=== PATIENT | male | born 1995 | race Caucasian/White ===

== ENCOUNTER 2017-08-11 12:52 | Emergency (ER) | payer BC ==
[2017-08-11 14:21] VITALS: BP 122/80
--- NOTE | 2017-08-11 14:58 | UC ---
UC General HPI - HPI Summary HPI Summary: Pt c/o generalized body aches, tender lymph nodes under chin. 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 Pt states he felt better but over the last 2 days wakes with joint pain and tender lymph nodes under chin. Pt is concerned about lyme disease. PCP is Mary James. - History of Current Complaint Chief Complaint: UCGeneralIllness Stated Complaint: ACHY FATIGUE Time Seen by Provider: 08/11/17 14:25 Hx Obtained From: Patient Onset/Duration: Sudden Onset, Lasting Days, Still Present Timing: Constant Onset Severity: Mild Current Severity: Mild Pain Intensity: 5 - Allergy/Home Medications Allergies/Adverse Reactions: Allergies Allergy/AdvReac Type Severity Reaction Status Date / Time bee stings Allergy Anaphylatic Uncoded 08/11/17 14:18 Shock Home Medications: Home Medications NK [No Home Medications Reported] 08/11/17 [History Confirmed 08/11/17] PMH/Surg Hx/FS Hx/Imm Hx Previously Healthy: Yes - Surgical History Surgical History: Yes Surgery Procedure, Year, and Place: app2010 - Family History Known Family History: Positive: Cardiac Disease - Social History Occupation: Employed Full-time Lives: With Family Alcohol Use: Weekly Substance Use Type: None Smoking Status (MU): Never Smoked Tobacco Have You Smoked in the Last Year: No - Immunization History Vaccination Up to Date: Yes Review of Systems Constitutional: Fatigue Skin: Negative Eyes: Negative ENT: Negative Respiratory: Negative Cardiovascular: Negative Gastrointestinal: Negative Genitourinary: Negative Motor: Other - joint pain Neurovascular: Negative Musculoskeletal: Arthralgia, Myalgia Neurological: Negative Psychological: Negative Is Patient Immunocompromised?: No All Other Systems Reviewed And Are Negative: Yes Physical Exam Triage Information Reviewed: Yes Appearance: Well-Appearing Vital Signs: Initial Vital Signs Temp 98.8 F 08/11/17 14:15 Pulse 78 08/11/17 14:15 Resp 16 08/11/17 14:15 BP 122/80 08/11/17 14:15 Pulse Ox 100 08/11/17 14:15 Vital Signs Reviewed: Yes Eye Exam: Normal ENT Exam: Normal Dental Exam: Normal Neck exam: Normal Respiratory Exam: Normal Cardiovascular Exam: Normal Musculoskeletal Exam: Normal Neurological Exam: Normal Psychological Exam: Normal Skin Exam: Other - facial acne Course/Dx - Course Course Of Treatment: I discussed with the pt the need to follow up with his PCP as soon as possible. Pt verbalized understanding and agreed to plan of care. - Differential Dx - Multi-Symptom Provider Diagnoses: Arthralgia. joint pain Discharge - Discharge Plan Condition: Stable Disposition: HOME Patient Education Materials: Arthralgia (ED) Referrals: Kassie James MD [Primary Care Provider] - As Soon As Possible Additional Instructions: Please follow up with your PCP as soon as possible.
[2017-08-11 19:53] LABS: ABS Basophils 0.1 10^3/ul (0-0.2); ABS Eosinophils 0.3 10^3/ul (0-0.6); ABS Lymphocytes 1.3 10^3/ul (1.0-4.8); ABS Monocytes 0.7 10^3/ul (0-0.8); ABS Neutrophils 6.6 10^3/ul (1.5-7.7); ABS Nucleated RBC 0 10^3/ul; Eosinophil % 3.5 % (0-6); Hematocrit 43 % (42-52); Lymphocyte % 14.6 % (25-47); Mean Corpuscular HGB Conc 35 g/dl (31-36); Mean Corpuscular Hemoglobin 30 pg (27-31); Mean Corpuscular Volume 87 fL (80-94); Mean Platelet Volume 8 um3 (7.4-10.4); Nucleated Red Blood Cells % 0.1; Platelet Count 232 10^3/ul (150-450); Red Blood Count 4.95 10^6/ul (4.0-5.4); Red Cell Distribution Width 13 % (10.5-15); White Blood Count 8.9 10^3/ul (3.5-10.8)
== END 2017-08-11 15:15 | disposition home or self-care (01) ==
LOC: UCCORT 12:52
DX: M25.50 Pain in unspecified joint (principal); Z91.030 Bee allergy status
CPT/HCPCS: 36415; 85025; 87798; 99211; G0463

== ENCOUNTER 2017-10-17 11:09 | Emergency (ER) | payer BC ==
[2017-10-17 13:28] VITALS: BP 140/71
[2017-10-17] MEDS ORDERED: Albuterol 2.5 MG/3 ML NEB.SOL* (0.083%) INH ONE (13:58)
--- NOTE | 2017-10-17 13:59 | UC ---
UC General HPI - HPI Summary HPI Summary: PT IS C/O A 1 WEEK HX COUGH, SOB, WHEEZING. SUBJECTIVE FEVER. USING AN ALBUTEROL INHALER WITH SOME RELIEF. HX PNEUMONIA ONCE YEARS AGO AND THIS FEELS THE SAME. + GREEN SPUTUM. - History of Current Complaint Chief Complaint: UCRespiratory Stated Complaint: COUGH*1WEEK Time Seen by Provider: 10/17/17 13:44 Hx Obtained From: Patient Onset/Duration: Gradual Onset Timing: Constant Pain Intensity: 5 Associated Signs & Symptoms: Positive: Cough, Fever, SOB, Wheezing. Negative: Chest Pain - Allergy/Home Medications Allergies/Adverse Reactions: Allergies Allergy/AdvReac Type Severity Reaction Status Date / Time bee stings Allergy Anaphylatic Uncoded 10/17/17 13:22 Shock PMH/Surg Hx/FS Hx/Imm Hx Respiratory History: Pneumonia - ONCE YEARS AGO - Surgical History Surgical History: Yes Surgery Procedure, Year, and Place: app2010 - Family History Known Family History: Positive: Cardiac Disease - Social History Occupation: Employed Full-time Lives: With Family Alcohol Use: Weekly Substance Use Type: None Smoking Status (MU): Never Smoked Tobacco Have You Smoked in the Last Year: No - Immunization History Vaccination Up to Date: Yes Review of Systems Constitutional: Fever, Chills Skin: Negative Eyes: Negative ENT: Negative Respiratory: Shortness Of Breath, Cough Cardiovascular: Negative Gastrointestinal: Negative Genitourinary: Negative Motor: Negative Neurovascular: Negative Musculoskeletal: Negative Neurological: Negative Psychological: Negative Is Patient Immunocompromised?: No All Other Systems Reviewed And Are Negative: Yes Physical Exam Triage Information Reviewed: Yes Appearance: Well-Appearing Vital Signs: Initial Vital Signs Temp 97.4 F 10/17/17 13:22 Pulse 74 10/17/17 13:22 Resp 16 10/17/17 13:22 BP 140/71 10/17/17 13:22 Pulse Ox 98 10/17/17 13:22 Vital Signs Reviewed: Yes Eyes: Positive: Conjunctiva Clear ENT: Positive: Pharynx normal, TMs normal. Negative: Nasal congestion, Nasal drainage Neck: Positive: Supple, Nontender, No Lymphadenopathy Respiratory: Positive: No respiratory distress, Decreased breath sounds, Expiration - DIFFUSE Cardiovascular: Positive: RRR, No Murmur, Pulses Normal Abdomen Description: Positive: Nontender, No Organomegaly, Soft Bowel Sounds: Positive: Present Musculoskeletal: Positive: ROM Intact Neurological: Positive: Alert Psychological: Positive: Age Appropriate Behavior Skin Exam: Normal Diagnostics - Radiology No standard instances Xray Interpretation: No Acute Changes Radiology Interpretation Completed By: Radiologist Re-Evaluation - Re-Evaluation Second Eval Re-Evaluation Time: 14:19 Change: Improved - wheezing cleared. faint crackles RLL. Course/Dx - Course Course Of Treatment: NO HX HTN, I THINK BP RELATED TO ILLNESS AND ALBUTEROL USE q4 HOURS. CXR UNREMARKABLE BUT CRACKLES RLL POST TX, POSSIBLE EARLY PNEUMONIA THUIS WILL TX PRESUMPTIVELY. - Differential Dx - Multi-Symptom Provider Diagnoses: Bronchospasm. Possibe early pneumonia Discharge - Sign-Out/Discharge Documenting (check all that apply): Discharge/Admit/Transfer - Discharge Plan Condition: Stable Disposition: HOME Prescriptions: DOXYcycline CAP(*) [DOXYcycline 100MG CAP(*)] 100 mg PO BID #20 cap Patient Education Materials: Bronchospasm (ED), Pneumonia (ED), Hypertension ( ED) Referrals: Kassie James MD [Primary Care Provider] - 5 Days Additional Instructions: CONTINUE ALBUTEROL INHALER 2 PUFFS EVERY 4-6 HOURS HAVE BP RECHECKED ON FOLLOW UP VISIT - Billing Disposition and Condition Condition: STABLE Disposition: HOME
--- NOTE | 2017-10-17 14:17 | RAD ---
HISTORY: cough, shortness of breath and without COMPARISONS: None VIEWS: 4: Frontal dual-energy and lateral views of the chest. FINDINGS: CARDIOMEDIASTINAL SILHOUETTE: The cardiomediastinal silhouette is normal. NATALIE: The natalie are normal. PLEURA: The costophrenic angles are sharp. No pleural abnormalities are noted. LUNG PARENCHYMA: The lungs are clear. ABDOMEN: The upper abdomen is clear. There is no subphrenic gas. BONES AND SOFT TISSUES: No bone or soft tissue abnormalities are noted. OTHER: None. IMPRESSION: NO ACTIVE CARDIOPULMONARY DISEASE.
== END 2017-10-17 14:42 | disposition home or self-care (01) ==
LOC: UCCORT 11:09
DX: J98.01 Acute bronchospasm (principal)
CPT/HCPCS: 71046; 99212; G0463

== ENCOUNTER 2019-03-29 09:46 | Emergency (ER) | payer BC ==
[2019-03-29 10:14] VITALS: BP 141/88
--- NOTE | 2019-03-29 10:17 | UC ---
Throat Pain/Nasal Kam HPI - HPI Summary HPI Summary: Patient is a 23-year-old male presenting with sore throat, fever, headache, fatigue 48 hours. He states this is like the times he has had strep in the past. Notes nasal congestion and postnasal drip. Notes decreased appetite. Denies decreased fluid intake. Denies ear pain, cough, shortness of breath, and wheezing. Denies nausea, vomiting, diarrhea. States he took Aleve yesterday for his headache with some relief. - History of Current Complaint Chief Complaint: EDRespiratoryDistress Stated Complaint: MIGRAINE,COUGH Hx Obtained From: Patient Onset/Duration: Sudden Onset Severity: Moderate Pain Intensity: 5 Pain Scale Used: 0-10 Numeric - Allergies/Home Medications Allergies/Adverse Reactions: Allergies Allergy/AdvReac Type Severity Reaction Status Date / Time bee stings Allergy Anaphylatic Uncoded 03/29/19 10:14 Shock Home Medications: Home Medications NK [No Home Medications Reported] 03/29/19 [History Confirmed 03/29/19] PMH/Surg Hx/FS Hx/Imm Hx Previously Healthy: Yes - Surgical History Surgical History: Yes Surgery Procedure, Year, and Place: app2010 - Family History Known Family History: Positive: Cardiac Disease - Social History Alcohol Use: Rare Substance Use Type: None Smoking Status (MU): Never Smoked Tobacco Have You Smoked in the Last Year: No - Immunization History Vaccination Up to Date: Yes Review of Systems All Other Systems Reviewed And Are Negative: Yes Constitutional: Positive: Fever, Fatigue. Negative: Chills Skin: Positive: Negative ENT: Positive: Sore Throat, Nasal Discharge, Sinus Congestion. Negative: Ear Ache, Sinus Pain/Tenderness Respiratory: Positive: Negative. Negative: Shortness Of Breath, Cough Cardiovascular: Positive: Negative Gastrointestinal: Positive: Negative Musculoskeletal: Positive: Negative Neurological: Positive: Headache Physical Exam Triage Information Reviewed: Yes Appearance: Well-Appearing, No Pain Distress, Well-Nourished Vital Signs: Initial Vital Signs Temp 97.8 F 03/29/19 10:11 Pulse 101 03/29/19 10:11 Resp 18 03/29/19 10:11 BP 141/88 03/29/19 10:11 Pulse Ox 100 03/29/19 10:11 Lab Results 03/29/19 Range/Units 10:16 Group A Strep Rapid Negative (Negative) Vital Signs Reviewed: Yes Eyes: Positive: Conjunctiva Clear ENT: Positive: Hearing grossly normal, Pharyngeal erythema, Nasal congestion, Nasal drainage - PND noted, TMs normal, Tonsillar swelling, Tonsillar exudate, Uvula midline. Negative: TM bulging, TM dull, TM red, Trismus, Muffled voice, Hoarse voice, Sinus tenderness Neck exam: Normal Neck: Positive: Supple, Nontender, No Lymphadenopathy Respiratory Exam: Normal Respiratory: Positive: Lungs clear, Normal breath sounds, No respiratory distress Cardiovascular Exam: Normal Cardiovascular: Positive: RRR, Tachycardia Neurological: Positive: Alert Psychological: Positive: Age Appropriate Behavior Throat Pain/Nasal Course/Dx - Course Course Of Treatment: Discussed with patient and negative rapid strep test and other etiologies of exudative pharyngitis. Instructed patient to continue with symptomatic treatment. I instructed him to follow up with PCP if symptoms persist or return or go to the emergency room if symptoms worsen. Patient voiced understanding and agreed to treatment plan. - Differential Dx/Diagnosis Provider Diagnosis: Upper respiratory infection, Exudative pharyngitis Discharge ED - Sign-Out/Discharge Documenting (check all that apply): Patient Departure All imaging exams completed and their final reports reviewed: No Studies - Discharge Plan Condition: Stable Disposition: HOME Patient Education Materials: Pharyngitis (ED) Forms: *Work Release Referrals: Kassie James MD [Primary Care Provider] - If Needed Additional Instructions: As discussed, you tested negative for strep throat today. You may take ibuprofen and/or tylenol as directed for pain and fever relief. You may use over the counter throat sprays or lozenges for symptomatic relief. Get plenty of rest and fluids. Follow up with your PCP if your symptoms do not resolve within 7 days. Return or go to the emergency room if symptoms worsen. - Billing Disposition and Condition Condition: STABLE Disposition: Home - Attestation Statements Provider Attestation: I was available for consult. This patient was seen by the SHAHRAM. The patient was not presented to, seen by, or examined by me. -Yunior
[2019-03-29] MEDS ORDERED: Ibuprofen TAB* 600 MG PO ONE (10:20)
== END 2019-03-29 10:50 | disposition home or self-care (01) ==
LOC: UCCORT 09:46
DX: J06.9 Acute upper respiratory infection, unspecified (principal); J02.9 Acute pharyngitis, unspecified; Z91.09 Other allergy status, other than to drugs and biological substances
CPT/HCPCS: 87651; 99212; A9270-GY; G0463